=== PATIENT | female | born 1995 | race Caucasian/White ===

== ENCOUNTER 2018-03-02 09:46 | Emergency (ER) | payer BC ==
[~2018-03-02] VITALS: Ht 162.6 cm; Wt 93.0 kg
--- NOTE | 2018-03-02 10:17 | PHYS DOC ---
Past History Past Medical History: No Pertinent History Past Surgical History: No Surgical History Alcohol Use: Occasionally Drug Use: None Adult General Chief Complaint Chief Complaint: UPPER EXTREMITY SWELLING HPI HPI 21-year-old female presents with right arm cellulitis. Patient states that about 36 hours ago she got what she thought was insect bite. All day yesterday, the erythema around the area or significantly. At this time, she has an erythematous, warm area 6 cm x 20 cm. She denies fever or chills. He has had no other systemic effects. She denies any other areas of rash. There has not been any spontaneous drainage. Review of Systems Review of Systems Constitutional: Denies fever or chills [] Eyes: Denies change in visual acuity, redness, or eye pain [] HENT: Denies nasal congestion or sore throat [] Respiratory: Denies cough or shortness of breath [] Cardiovascular: No additional information not addressed in HPI [] GI: Denies abdominal pain, nausea, vomiting, bloody stools or diarrhea [] : Denies dysuria or hematuria [] Musculoskeletal: Denies back pain or joint pain [] Integument: skin rash[] Neurologic: Denies headache, focal weakness or sensory changes [] Endocrine: Denies polyuria or polydipsia [] All other systems were reviewed and found to be within normal limits, except as documented in this note. Physical Exam Physical Exam Constitutional: Well developed, well nourished, no acute distress, non-toxic appearance. [] HENT: Normocephalic, atraumatic, bilateral external ears normal, oropharynx moist, no oral exudates, nose normal. [] Eyes: PERRLA, EOMI, conjunctiva normal, no discharge. [] Neck: Normal range of motion, no tenderness, supple, no stridor. [] Cardiovascular:Heart rate regular rhythm, no murmur [] Lungs & Thorax: Bilateral breath sounds clear to auscultation [] Abdomen: Bowel sounds normal, soft, no tenderness, no masses, no pulsatile masses. [] Skin: Right forearm 6 cm x 20 cm erythematous, warm rash around a central lesion. No palpable area of fluctuance.[] Back: No tenderness, no CVA tenderness. [] Extremities: No tenderness, no cyanosis, no clubbing, ROM intact, no edema. [] Neurologic: Alert and oriented X 3, normal motor function, normal sensory function, no focal deficits noted. [] Psychologic: Affect normal, judgement normal, mood normal. [] Current Patient Data Vital Signs Vital Signs Date Time Temp Pulse Resp B/P (MAP) Pulse Ox O2 Delivery O2 Flow Rate FiO2 03/02/18 09:59 98.9 93 20 96 Room Air EKG EKG [] Radiology/Procedures Radiology/Procedures [] Course & Med Decision Making Course & Med Decision Making Pertinent Labs and Imaging studies reviewed. (See chart for details) The patient's cellulitis has expanded significantly within 24 hours. I will treat her with 1 g of Rocephin IM followed by 7 days of Bactrim by mouth. I informed her that if she develops a fever or if the area continues to expand that she may need to return for IV antibiotics. She would like to try outpatient treatment. She is stable for discharge at this time. [] Dragon Disclaimer Dragon Disclaimer This electronic medical record was generated, in whole or in part, using a voice recognition dictation system. Departure Departure: Referrals: PCP,[id number] (PCP) HITESH LEON DO Mar 02, 2018 10:17
[2018-03-02] MEDS ORDERED: SULF1TAB24 PO (10:18)
[2018-03-02] MEDS: cefTRIAXone IM 1 GM VIAL IM ONE (10:53)
[2018-03-02 11:00] VITALS: BP 138/78
== END 2018-03-02 11:01 | disposition home or self-care (01) ==
LOC: ER 09:46
DX: L03.113 Cellulitis of right upper limb (principal)
CPT/HCPCS: 96372; 99283; J0696